=== PATIENT | female | born 1995 | race Caucasian/White ===

== ENCOUNTER 2017-08-31 16:25 | Emergency (ER) | payer SELFPAY ==
[2017-08-31 16:40] VITALS: BP 132/80
[2017-08-31] MEDS ORDERED: ONDANSETRON 4 MG TAB.RAPDIS SL ONE (16:47)
[2017-08-31] MEDS ORDERED: NORMAL SALINE 1000 ML 1,000 ML IV PRN (16:48)
--- NOTE | 2017-08-31 16:49 | ER Document Report ---
ED Medical Screen (RME) - General Chief Complaint: Nausea/Vomiting Stated Complaint: VOMITING Time Seen by Provider: 08/31/17 16:46 Mode of Arrival: Wheelchair Information source: Patient TRAVEL OUTSIDE OF THE [place] IN LAST 30 DAYS: No - HPI Patient complains to provider of: Nausea and vomiting Notes: 08/31/17 16:48 Patient is a 21-year-old female presenting to the emergency room complaining of nausea and vomiting that started earlier today, she has nausea on a daily basis for a while but denies being Past Medical History Renal/ Medical History: Denies: Hx Peritoneal Dialysis Physical Exam - Vital signs Vitals: Temp Pulse Resp BP Pulse Ox 97.5 F 100 H 20 132/80 H 100 08/31/17 16:35 08/31/17 16:35 08/31/17 16:35 08/31/17 16:35 08/31/17 16:35 Course - Vital Signs Vital signs: Temp Pulse Resp BP Pulse Ox 97.5 F 100 H 20 132/80 H 100 08/31/17 16:35 08/31/17 16:35 08/31/17 16:35 08/31/17 16:35 08/31/17 16:35
[2017-08-31 17:21] LABS: ABSOLUTE BASOPHILS # (AUTO) 0.1 10^3/uL (0.0-0.2); ABSOLUTE LYMPHOCYTES (AUTO) 2.1 10^3/uL (0.5-4.7); ABSOLUTE MONOCYTES (AUTO) 0.6 10^3/uL (0.1-1.4); ABSOLUTE NEUT (AUTO) 8.3 10^3/uL (1.7-8.2); BASOPHILS % (AUTO) 0.7 % (0-2); EOSINOPHILS % (AUTO) 0.1 % (0-6); HEMATOCRIT 44.8 % (36.0-47.0); HEMOGLOBIN 15.5 g/dL (12.0-15.5); HGB HCT DIFFERENCE 1.7; LYMPHOCYTES % (AUTO) 18.7 % (13-45); MEAN CORPUSCULAR HEMOGLOBIN 32.1 pg (27.0-33.4); MEAN CORPUSCULAR HGB CONC 34.5 g/dL (32.0-36.0); MEAN CORPUSCULAR VOLUME 93 fl (80-97); MONOCYTES % (AUTO) 5.2 % (3-13); RED BLOOD COUNT 4.82 10^6/uL (3.72-5.28); RED CELL DISTRIBUTION WIDTH 12.8 % (11.5-14.0); SEGMENTED NEUTROPHILS % (AUTO) 75.3 % (42-78)
[2017-08-31] MEDS ORDERED: METOCLOPRAMIDE HCL INJ/PF 10 MG/2 ML SDV IV ONE (17:26)
[2017-08-31 17:42] LABS: ALANINE AMINOTRANSFERASE 34 U/L (5-35); ALBUMIN 5.2 g/dL (3.7-5.6); ALKALINE PHOSPHATASE 84 U/L (50-135); ANION GAP 18 (5-19); ASPARTATE AMINO TRANSFERASE 26 U/L (5-30); BILIRUBIN,DIRECT 0.4 mg/dL (0.0-0.4); BILIRUBIN,TOTAL 1.1 mg/dL (0.2-1.3); BLOOD UREA NITROGEN 14 mg/dL (7-20); CALCIUM 10.3 mg/dL (8.4-10.2); CARBON DIOXIDE 23 mmol/L (22-30); CHLORIDE 104 mmol/L (98-107); CREATININE RESULT 0.65 mg/dL (0.52-1.25); GLUCOSE 121 mg/dL (75-110); LIPASE 120.5 U/L (23-300); POTASSIUM 3.9 mmol/L (3.6-5.0); SODIUM 144.5 mmol/L (137-145); TOTAL PROTEIN 8.5 g/dL (6.3-8.2)
[2017-08-31] MEDS ORDERED: DIPHENHYDRAMINE HCL 50 MG/ML VIAL IV ONE (17:42)
[2017-08-31 18:54] LABS: APPEARANCE,URINE SLIGHTLY-CLOUDY; BILIRUBIN,URINE NEGATIVE (NEGATIVE); GLUCOSE, URINE NEGATIVE (NEGATIVE); KETONES,URINE 80 mg/dL (NEGATIVE); LEUKOCYTE ESTERASE,URINE NEGATIVE (NEGATIVE); NITRITE,URINE NEGATIVE (NEGATIVE); PROTEIN,URINE 30 mg/dL (NEGATIVE); URINE SPECIFIC GRAVITY 1.024; UROBILINOGEN,URINE NEGATIVE mg/dL (<2.0)
--- NOTE | 2017-08-31 19:16 | ER Document Report ---
ED General - General Chief Complaint: Nausea/Vomiting Stated Complaint: VOMITING Time Seen by Provider: 08/31/17 16:46 Mode of Arrival: Wheelchair Notes: Patient is a 21-year-old female without past medical history, no chronic medical conditions, no prior surgeries who presents with 2 days of nausea, vomiting, and decreased oral intake. Patient notes that after several episodes of vomiting she has developed a generalized abdominal pain cramping. Cramping is intermittent, mild to moderate in severity. She states that since that eating seemed to trigger her vomiting and abdominal pain and nothing seems to resolve her symptoms. She has a history of similar symptoms in the past and knows that she does have chronic daily nausea for at least the past 1 year but has not yet been evaluated for that illness. She is visiting from out of town so has been unable see her primary care doctor regarding today's concerns. She denies any vaginal bleeding or discharge. No dysuria. No fever or constitutional symptoms. TRAVEL OUTSIDE OF THE [place] IN LAST 30 DAYS: No - Related Data Allergies/Adverse Reactions: No Known Allergies Allergy (Unverified 08/31/17 16:53) Past Medical History - General Information source: Patient - Social History Smoking Status: Current Some Day Smoker Frequency of alcohol use: None Drug Abuse: None Family History: Reviewed & Not Pertinent Patient has suicidal ideation: No Patient has homicidal ideation: No Renal/ Medical History: Denies: Hx Peritoneal Dialysis Review of Systems - Review of Systems Notes: Constitutional: Negative for fever. HENT: Negative for sore throat. Eyes: Negative for visual changes. Cardiovascular: Negative for chest pain. Respiratory: Negative for shortness of breath. Gastrointestinal: Positive for abdominal pain and vomiting Genitourinary: Negative for dysuria. Musculoskeletal: Negative for back pain. Skin: Negative for rash. Neurological: Negative for headaches, weakness or numbness. 10 point ROS negative except as marked above and in HPI. Physical Exam - Vital signs Vitals: Temp Pulse Resp BP Pulse Ox 97.5 F 100 H 20 132/80 H 100 08/31/17 16:35 08/31/17 16:35 08/31/17 16:35 08/31/17 16:35 08/31/17 16:35 Interpretation: Normal Notes: PHYSICAL EXAMINATION: GENERAL: Well-appearing, well-nourished and in no acute distress. HEAD: Atraumatic, normocephalic. EYES: Pupils equal round and reactive to light, extraocular movements intact, sclera anicteric, conjunctiva are normal. ENT: nares patent, oropharynx clear without exudates. Moderately dry mucous membranes. NECK: Normal range of motion, supple without lymphadenopathy LUNGS: Breath sounds clear to auscultation bilaterally and equal. No wheezes rales or rhonchi. HEART: Regular rate and rhythm without murmurs ABDOMEN: Soft, nontender, normoactive bowel sounds. No guarding, no rebound. No masses appreciated. EXTREMITIES: Normal range of motion, no pitting or edema. No cyanosis. NEUROLOGICAL: No focal neurological deficits. Moves all extremities spontaneously and on command. PSYCH: Normal mood, normal affect. SKIN: Warm, Dry, normal turgor, no rashes or lesions noted. Course - Re-evaluation Re-evalutation: 08/31/17 19:18 Patient presents with vomiting and abdominal cramping that is been present for the past 12 hours. Patient is overall well in appearance, no acute distress, moderately dry mucous membranes on examination. She does have diffuse lower abdominal discomfort without any focal tenderness the right lower quadrant with rebound or guarding to suggest an acute appendicitis. She has no flank tenderness. Her laboratories are overall unremarkable without evidence of an acute pancreatitis, and no clinical history or laboratories to suggest an acute biliary pathology or acute hepatitis. She is not . She denies any vaginal bleeding or discharge. She did have some hematuria in the urine raising concern for possible pelvic pathology. I did discuss this with the patient and encouraged a pelvic exam as well as transvaginal ultrasound which she did declined stating that she had recently had these examination performed during a routine MORPHOLOGIST visit and also stated that she felt much better after receiving our therapies here in the emergency department. I have encouraged her to immediately return to the emergency department should she have any worsening of her lower abdominal discomfort, persistence of her vomiting, fever , or any other symptoms that are concerning to her. Her witnessed this conversation with the patient and is likewise agreeable to this plan. At this time will discharge with return precautions and follow-up recommendations. Verbal discharge instructions given a the bedside and opportunity for questions given. Medication warnings reviewed. Patient is in agreement with this plan and has verbalized understanding of return precautions and the need for primary care follow-up in the next 24-72 hours. - Vital Signs Vital signs: Temp Pulse Resp BP Pulse Ox 97.5 F 86 17 132/80 H 100 08/31/17 16:35 08/31/17 19:52 08/31/17 19:52 08/31/17 16:35 08/31/17 19:52 - Laboratory Result Diagrams: 08/31/17 17:08 08/31/17 17:08 Laboratory results interpreted by me: 08/31/17 08/31/17 08/31/17 17:00 17:08 17:08 WBC 11.0 H Absolute Neutrophils 8.3 H Glucose 121 H Calcium 10.3 H Total Protein 8.5 H Urine Protein 30 H Urine Ketones 80 H Urine Blood LARGE H Discharge - Discharge Clinical Impression: Lower abdominal pain Nausea and vomiting Qualifiers: Vomiting type: unspecified Vomiting Intractability: non-intractable Qualified Code(s): R11.2 - Nausea with vomiting, unspecified Condition: Good Disposition: HOME, SELF-CARE Additional Instructions: You have been seen in the Emergency Department (ED) today for nausea and vomiting. Your work up today has not shown a clear cause for your symptoms. You have been prescribed Zofran; please use as prescribed as needed for your nausea. Follow up with your doctor as soon as possible regarding today's emergent visit and your symptoms of nausea. Return to the Emergency Department (ED) if you develop worsening abdominal pain , bloody vomiting, bloody diarrhea, if you are unable to tolerate fluids due to vomiting, or if you develop other symptoms that concern you.
[2017-08-31] MEDS ORDERED: ONDANSETRON ODT 4 MG TAB (6 TAB/DSPK) PO PRN (19:18)
== END 2017-08-31 19:52 | disposition home or self-care (01) ==
LOC: ER 16:25
DX: R11.2 Nausea with vomiting, unspecified (principal); R10.30 Lower abdominal pain, unspecified; F17.200 Nicotine dependence, unspecified, uncomplicated; R31.9 Hematuria, unspecified
CPT/HCPCS: 99283; 96361; 96374; 96375; 36415; 87086; 83690; 84703; 85025; 80053; 81001; J1200; S0119; J2765; J7030

== ENCOUNTER 2017-09-01 22:16 | Emergency (ER) | payer SELFPAY ==
[2017-09-01 22:26] VITALS: BP 144/111
== END 2017-09-02 00:05 | disposition left against medical advice (07) ==
LOC: ER 22:16
DX: Z53.21 Procedure and treatment not carried out due to patient leaving prior to being seen by health care provider (principal)

== ENCOUNTER 2017-09-02 11:35 | Emergency (ER) | payer BC ==
[2017-09-02] MEDS ORDERED: ONDANSETRON HCL INJ/PF 4 MG/2 ML SDV IV ONE (12:05)
[2017-09-02] MEDS ORDERED: NORMAL SALINE 1000 ML 1,000 ML IV ONE (12:05)
[2017-09-02] MEDS ORDERED: MORPHINE SULFATE 10 MG/ML INJ IV ONE (12:06)
--- NOTE | 2017-09-02 12:06 | ER Document Report ---
ED Medical Screen (RME) - General Chief Complaint: Abdominal Pain Stated Complaint: ABDOMINAL PAIN Time Seen by Provider: 09/02/17 12:05 Notes: Patient presents with severe suprapubic abdominal pain. She is also had nausea and vomiting. She states this is been going on for several days. TRAVEL OUTSIDE OF THE [place] IN LAST 30 DAYS: No - Related Data Allergies/Adverse Reactions: No Known Allergies Allergy (Verified 09/02/17 11:41) Past Medical History Renal/ Medical History: Denies: Hx Peritoneal Dialysis Physical Exam - Vital signs Vitals: Temp Pulse Resp BP Pulse Ox 98.2 F 63 18 143/88 H 99 09/02/17 11:39 09/02/17 11:39 09/02/17 11:39 09/02/17 11:39 09/02/17 11:39 Course - Vital Signs Vital signs: Temp Pulse Resp BP Pulse Ox 98.2 F 63 18 143/88 H 99 09/02/17 11:39 09/02/17 11:39 09/02/17 11:39 09/02/17 11:39 09/02/17 11:39
[2017-09-02 12:51] LABS: APPEARANCE,URINE SLIGHTLY-CLOUDY; BILIRUBIN,URINE NEGATIVE (NEGATIVE); CALCIUM OXALATE CRYSTALS,URINE FEW /HPF; GLUCOSE, URINE NEGATIVE (NEGATIVE); KETONES,URINE TRACE mg/dL (NEGATIVE); LEUKOCYTE ESTERASE,URINE NEGATIVE (NEGATIVE); NITRITE,URINE NEGATIVE (NEGATIVE); PROTEIN,URINE 100 mg/dL (NEGATIVE); URINE SPECIFIC GRAVITY 1.028
--- NOTE | 2017-09-02 13:12 | ER Document Report ---
ED General - General Chief Complaint: Abdominal Pain Stated Complaint: ABDOMINAL PAIN Time Seen by Provider: 09/02/17 12:05 Notes: 21-year-old female patient emergency department today chief complaint of lower pelvic pain/abdominal pain. States this is been going on off and on for couple of days. Nothing seems to make it better or worse. Pain is minimal at this time. Patient states that she is sexually active. Denies any large amount of pelvic discharge. No fever. Some nausea. No vomiting. Still has her appendix , uterus, ovaries, gallbladder. It is rated as a 3/10 on the numeric pain scale. Nonradiating. Located in the suprapubic area. TRAVEL OUTSIDE OF THE [place] IN LAST 30 DAYS: No - HPI Onset: Yesterday Onset/Duration: Gradual Quality of pain: Achy Associated symptoms: Nausea - Related Data Allergies/Adverse Reactions: No Known Allergies Allergy (Verified 09/02/17 11:41) Past Medical History - General Information source: Patient - Social History Smoking Status: Current Every Day Smoker Chew tobacco use (# tins/day): - vapor Frequency of alcohol use: Occasional Drug Abuse: Marijuana Family History: Reviewed & Not Pertinent Patient has suicidal ideation: No Patient has homicidal ideation: No Renal/ Medical History: Denies: Hx Peritoneal Dialysis Psychiatric Medical History: Reports: Hx Depression - manic depression,/ anxiety PTSD Surgical Hx: Negative - Immunizations Hx Diphtheria, Pertussis, Tetanus Vaccination: No Review of Systems - Review of Systems Constitutional: No symptoms reported EENT: No symptoms reported Cardiovascular: No symptoms reported Respiratory: No symptoms reported Gastrointestinal: No symptoms reported, Abdominal pain, Nausea Genitourinary: No symptoms reported Female Genitourinary: No symptoms reported Musculoskeletal: No symptoms reported Skin: No symptoms reported Hematologic/Lymphatic: No symptoms reported Neurological/Psychological: No symptoms reported Physical Exam - Vital signs Vitals: Temp Pulse Resp BP Pulse Ox 98.2 F 63 18 143/88 H 99 09/02/17 11:39 09/02/17 11:39 09/02/17 11:39 09/02/17 11:39 09/02/17 11:39 Interpretation: Normal - General General appearance: Appears well, Alert - HEENT Head: Normocephalic, Atraumatic Eyes: Normal Pupils: PERRL - Respiratory Respiratory status: No respiratory distress Chest status: Nontender Breath sounds: Normal Chest palpation: Normal - Cardiovascular Rhythm: Regular Heart sounds: Normal auscultation Murmur: No - Abdominal Inspection: Normal Distension: No distension Bowel sounds: Normal Tenderness: Other - Mild suprapubic tenderness. No guarding. No rebound Organomegaly: No organomegaly - Back Back: Normal, Nontender - Extremities General upper extremity: Normal inspection, Nontender, Normal color, Normal ROM , Normal temperature General lower extremity: Normal inspection, Nontender, Normal color, Normal ROM , Normal temperature, Normal weight bearing. No: Nereyda's sign - Neurological Neuro grossly intact: Yes Cognition: Normal Orientation: AAOx4 Fitzwilliam Coma Scale Eye Opening: Spontaneous Fitzwilliam Coma Scale Verbal: Oriented Fitzwilliam Coma Scale Motor: Obeys Commands Hyacinth Coma Scale Total: 15 Speech: Normal Motor strength normal: LUE, RUE, LLE, RLE Sensory: Normal - Psychological Associated symptoms: Normal affect, Normal mood - Skin Skin Temperature: Warm Skin Moisture: Dry Skin Color: Normal Course - Re-evaluation Re-evalutation: 09/02/17 13:27 Is a well-appearing 89-year-old female in no acute distress. Likely will need to get a pelvic exam. When explained to the patient patient immediately began to ask for female doctor. I told her that we would reassess that option after we see the labs and her response to treatment. 09/02/17 14:45 She requested a female provider for pelvic. Please see pelvic exam note a physician's front office assistant. By report no significant CMT our major concerns for cervicitis or PID. Will order ultrasound of the left lower quadrant to look for ovarian cysts or other pathology and then reassess. Labs have been reviewed and unremarkable. 09/02/17 16:34 Laboratory 09/02/17 09/02/17 09/02/17 12:15 12:20 12:20 WBC 7.1 RBC 4.91 Hgb 16.0 H Hct 45.6 MCV 93 MCH 32.5 MCHC 35.0 RDW 12.7 Plt Count 254 Seg Neutrophils % 66.2 Lymphocytes % 23.9 Monocytes % 9.2 Eosinophils % 0.2 Basophils % 0.5 Absolute Neutrophils 4.7 Absolute Lymphocytes 1.7 Absolute Monocytes 0.7 Absolute Eosinophils 0.0 Absolute Basophils 0.0 Sodium 143.3 Potassium 3.9 Chloride 102 Carbon Dioxide 25 Anion Gap 16 BUN 9 Creatinine 0.61 Est GFR ( Amer) > 60 Est GFR (Non-Af Amer) > 60 Glucose 92 Calcium 10.1 Total Bilirubin 1.1 Direct Bilirubin 0.4 Indirect Bilirubin Not Reportable Neonat Total Bilirubin Not Reportable AST 26 ALT 38 H Alkaline Phosphatase 74 Total Protein 8.5 H Albumin 5.2 Lipase 93.8 Urine Color YELLOW Urine Appearance SLIGHTLY-CLOUDY Urine pH 5.0 Ur Specific [place] 1.028 Urine Protein 100 H Urine Glucose (UA) NEGATIVE Urine Ketones TRACE H Urine Blood NEGATIVE Urine Nitrite NEGATIVE Urine Bilirubin NEGATIVE Urine Urobilinogen 2.0 H Ur Leukocyte Esterase NEGATIVE Urine WBC (Auto) 3 Urine RBC (Auto) 3 Squamous Epi Cells Auto 3 Calcium Oxalate Cr Auto FEW Urine Mucus (Auto) MANY Urine Ascorbic Acid NEGATIVE Urine HCG, Qual NEGATIVE Trichomonas (Wet Prep) Vaginal WBC Vaginal RBC Vaginal Yeast Chlamydia DNA (PCR) N.gonorrhoeae DNA (PCR) 09/02/17 09/02/17 13:50 13:50 WBC RBC Hgb Hct MCV MCH MCHC RDW Plt Count Seg Neutrophils % Lymphocytes % Monocytes % Eosinophils % Basophils % Absolute Neutrophils Absolute Lymphocytes Absolute Monocytes Absolute Eosinophils Absolute Basophils Sodium Potassium Chloride Carbon Dioxide Anion Gap BUN Creatinine Est GFR ( Amer) Est GFR (Non-Af Amer) Glucose Calcium Total Bilirubin Direct Bilirubin Indirect Bilirubin Neonat Total Bilirubin AST ALT Alkaline Phosphatase Total Protein Albumin Lipase Urine Color Urine Appearance Urine pH Ur Specific [place] Urine Protein Urine Glucose (UA) Urine Ketones Urine Blood Urine Nitrite Urine Bilirubin Urine Urobilinogen Ur Leukocyte Esterase Urine WBC (Auto) Urine RBC (Auto) Squamous Epi Cells Auto Calcium Oxalate Cr Auto Urine Mucus (Auto) Urine Ascorbic Acid Urine HCG, Qual Trichomonas (Wet Prep) NO TRICHOMONAS SEEN Vaginal WBC NO WBCS SEEN Vaginal RBC NO RBCS SEEN Vaginal Yeast NO YEAST SEEN Chlamydia DNA (PCR) NOT DETECTED N.gonorrhoeae DNA (PCR) NOT DETECTED Transvaginal US 09/02/17 14:09 IMPRESSION: ESSENTIALLY UNREMARKABLE TRANSVAGINAL PELVIC ULTRASOUND. THERE ARE SMALL FOLLICLES AND A FEW SMALL SIMPLE FOLLICULAR CYSTS. 09/02/17 16:34 She is well-appearing in no acute distress at this time. Workup fairly unremarkable. Some small ovarian cyst possible. Will give her information for [facility]GEANT follow-up. Comfortable at this time discharging - Vital Signs Vital signs: Temp Pulse Resp BP Pulse Ox 97.9 F 63 18 143/88 H 99 09/02/17 13:25 09/02/17 11:39 09/02/17 11:39 09/02/17 11:39 09/02/17 11:39 - Laboratory Result Diagrams: 09/02/17 12:20 09/02/17 12:20 Laboratory results interpreted by me: 09/02/17 09/02/17 09/02/17 12:15 12:20 12:20 Hgb 16.0 H ALT 38 H Total Protein 8.5 H Urine Protein 100 H Urine Ketones TRACE H Urine Urobilinogen 2.0 H Discharge - Discharge Clinical Impression: Pelvic pain Ovarian cyst Qualifiers: Laterality: bilateral Qualified Code(s): N83.201 - Unspecified ovarian cyst, right side; N83.202 - Unspecified ovarian cyst, left side; N83.202 - Unspecified ovarian cyst, left side Condition: Good Disposition: HOME, SELF-CARE Instructions: Abdominal Pain ([facility]) Additional Instructions: Ovarian Cyst Your examination shows the presence of an ovarian cyst. This is a ball of fluid attached to the ovary. Ovarian cysts in women of child-bearing age are usually innocent. However, the cyst may cause pain when it grows or bursts. An innocent ovarian cyst will usually go away by itself. When the cyst becomes painful, you should rest. Pain medication may be required. Some women find a hot water bottle soothing. The pain usually resolves within one or two days. After menopause, an ovarian cyst may mean a tumor, and requires more aggressive evaluation -- usually surgery is recommended to remove or biopsy the cyst. A very large cyst requires evaluation at any age. Most cysts (even the innocent ones) require follow-up examination. Call the doctor or return at any time if the pain increases significantly, if you become faint, or if you experience vaginal bleeding. Prescriptions: Ibuprofen [Motrin 600 Mg Tablet] 600 mg PO TID #15 tablet Ondansetron HCl [Zofran 4 mg Tablet] 1 - 2 tab PO Q4H PRN #10 tablet PRN Reason: Referrals: KAUSHAL MILLER MD [ACTIVE STAFF] - Follow up in 1 week
[2017-09-02 13:21] LABS: ABSOLUTE LYMPHOCYTES (AUTO) 1.7 10^3/uL (0.5-4.7); ABSOLUTE MONOCYTES (AUTO) 0.7 10^3/uL (0.1-1.4); ABSOLUTE NEUT (AUTO) 4.7 10^3/uL (1.7-8.2); BASOPHILS % (AUTO) 0.5 % (0-2); EOSINOPHILS % (AUTO) 0.2 % (0-6); HEMATOCRIT 45.6 % (36.0-47.0); HGB HCT DIFFERENCE 2.4; LYMPHOCYTES % (AUTO) 23.9 % (13-45); MEAN CORPUSCULAR HEMOGLOBIN 32.5 pg (27.0-33.4); MEAN CORPUSCULAR VOLUME 93 fl (80-97); MONOCYTES % (AUTO) 9.2 % (3-13); RED BLOOD COUNT 4.91 10^6/uL (3.72-5.28); RED CELL DISTRIBUTION WIDTH 12.7 % (11.5-14.0); SEGMENTED NEUTROPHILS % (AUTO) 66.2 % (42-78); WHITE BLOOD COUNT 7.1 10^3/uL (4.0-10.5)
[2017-09-02 13:32] LABS: ALANINE AMINOTRANSFERASE 38 U/L (5-35); ALBUMIN 5.2 g/dL (3.7-5.6); ALKALINE PHOSPHATASE 74 U/L (50-135); ANION GAP 16 (5-19); ASPARTATE AMINO TRANSFERASE 26 U/L (5-30); BILIRUBIN,DIRECT 0.4 mg/dL (0.0-0.4); BILIRUBIN,TOTAL 1.1 mg/dL (0.2-1.3); BLOOD UREA NITROGEN 9 mg/dL (7-20); CALCIUM 10.1 mg/dL (8.4-10.2); CARBON DIOXIDE 25 mmol/L (22-30); CHLORIDE 102 mmol/L (98-107); CREATININE RESULT 0.61 mg/dL (0.52-1.25); GLUCOSE 92 mg/dL (75-110); LIPASE 93.8 U/L (23-300); POTASSIUM 3.9 mmol/L (3.6-5.0); SODIUM 143.3 mmol/L (137-145); TOTAL PROTEIN 8.5 g/dL (6.3-8.2)
[2017-09-02] MEDS ORDERED: KETOROLAC TROMETHAMINE INJ/PF 30 MG/1 ML SDV IV ONE (14:10)
[2017-09-02 15:28] LABS: CHLAM PCR NOT DETECTED (NOT DETECT)
--- NOTE | 2017-09-02 16:04 | RADIOLOGY REPORT (SQ) ---
EXAM DESCRIPTION: U/S NON-OB PELVIS TV W/O DOP COMPLETED DATE/TIME: 09/02/2017 3:53 pm REASON FOR STUDY: LLQ pain COMPARISON: None. TECHNIQUE: Dynamic and static grayscale images acquired of the pelvis via transvaginal approach and recorded on PACS. Additional selected color Doppler and spectral images recorded. LIMITATIONS: None. FINDINGS: UTERUS: Contour normal. No mass. ENDOMETRIAL STRIPE: No focal or generalized thickening. No masses. CERVIX: No nabothian cysts. RIGHT OVARY: Small follicles and follicular cysts, the largest measuring 1.3 cm. RIGHT OVARY DOPPLER: Normal arterial vascular flow without evidence for torsion. LEFT OVARY: Small follicles and follicular cysts, the largest measuring 1.1 cm. LEFT OVARY DOPPLER: Normal arterial vascular flow without evidence for torsion. FREE FLUID: None noted. OTHER: No other significant finding. MEASUREMENTS: UTERUS: 2.8 x 3.6 x 7.2 cm. ENDOMETRIAL STRIPE: 3 mm. RIGHT OVARY: 2.4 x 2.8 x 3.2 cm. LEFT OVARY: 1.8 x 3.0 x 3.5 cm. IMPRESSION: ESSENTIALLY UNREMARKABLE TRANSVAGINAL PELVIC ULTRASOUND. THERE ARE SMALL FOLLICLES AND A FEW SMALL SIMPLE FOLLICULAR CYSTS. TECHNICAL DOCUMENTATION: JOB ID: [id number] [employer]- All Rights Reserved
[2017-09-02 17:21] VITALS: BP 124/76
== END 2017-09-02 17:10 | disposition home or self-care (01) ==
LOC: ER 11:35
DX: N83.201 Unspecified ovarian cyst, right side (principal); N83.202 Unspecified ovarian cyst, left side; R10.30 Lower abdominal pain, unspecified; R10.2 Pelvic and perineal pain; F17.200 Nicotine dependence, unspecified, uncomplicated
CPT/HCPCS: 99284; 36415; 87210; 83690; 85025; 81025; 80053; 81001; 87491; 87591; 76830; J1885; J2270; J2405; J7030

== ENCOUNTER → 2020-05-20 | Outpatient (CLI) | payer OTHER | LOC: OD 10:32 | PROVIDERS: ATTEND Family Medicine | DX: N92.6 Irregular menstruation, unspecified (principal) | CPT/HCPCS: 36415; 84703 ==